=== PATIENT | male | born 1950 | race Caucasian/White ===

== ENCOUNTER 2022-07-21 01:03 | Emergency (ER) | payer OTHER ==
[2022-07-21] MEDS ORDERED: Aspirin 81 MG Tab.Chew ONE (01:13)
[2022-07-21] MEDS ORDERED: Aspirin 81 MG Tab.Chew PO ONE (01:14)
[2022-07-21 01:43] LABS: CHLORIDE,CL 97 mmol/L (98-107); ESTIMATED GFR 71 mL/min (>=60); SODIUM,NA 140 mmol/L (136-145)
[2022-07-21] MEDS ORDERED: Diltiazem IR 60 MG Tab PO ONE (02:10)
[2022-07-21] MEDS ORDERED: Magnesium Oxide 400 MG Tab PO ONE (02:15)
== END 2022-07-21 04:22 | disposition home or self-care (01) ==
LOC: LL.ED 01:03
DX: E83.42 Hypomagnesemia (principal); R00.0 Tachycardia, unspecified; R56.9 Unspecified convulsions; Z72.0 Tobacco use; Z79.899 Other long term (current) drug therapy
CPT/HCPCS: 36415; 71045; 80053; 83605; 83735; 84484; 85025; 85379; 93005; 93010; 99284; 99285; A9270-GY

== ENCOUNTER 2022-10-19 20:17 | Emergency (ER) | payer OTHER, MEDICARE ==
[2022-10-19] MEDS ORDERED: Sodium Chloride 0.9% 10 ML Syringe FLUSH PRN (20:56)
[2022-10-19 21:21] LABS: ANION GAP 7.2 meq/L (7-15)
== END 2022-10-19 21:59 | disposition home or self-care (01) ==
LOC: LL.ED 20:17
DX: R09.02 Hypoxemia (principal); E78.00 Pure hypercholesterolemia, unspecified; Z79.899 Other long term (current) drug therapy
CPT/HCPCS: 36415; 71046; 80053; 85025; 93005; 93010; 99284; 99285